=== PATIENT | female | born 1970 | race Caucasian/White ===

== ENCOUNTER 2018-11-14 11:40 | Emergency (ER) | payer MEDICARE ==
[2018-11-14] MEDS ORDERED: Lidocaine 1% PF 5 ML VIAL ONE (11:58)
== END 2018-11-14 12:25 | disposition home or self-care (01) ==
LOC: BURERS 11:40
DX: L02.213 Cutaneous abscess of chest wall (principal); E78.00 Pure hypercholesterolemia, unspecified; F32.9 Major depressive disorder, single episode, unspecified; Z87.891 Personal history of nicotine dependence; Z79.899 Other long term (current) drug therapy
CPT/HCPCS: 10061; J2001

== ENCOUNTER 2019-05-31 14:33 | Emergency (ER) | payer MEDICARE ==
[2019-05-31] MEDS ORDERED: Albuterol Sulfate 2.5 mg/3 ml Neb ONE (15:02)
[2019-05-31] MEDS ORDERED: cefTRIAXone\\ROCEPHIN 2 GM VIAL ONE (15:09)
[2019-05-31] MEDS ORDERED: Ondansetron PF 4 MG/2 ML Vial ONE (15:09)
[2019-05-31 15:21] LABS: #Basophils 0.1 thou/uL (0.0-0.2); #Eosinphils 0.1 thou/uL (0.0-0.7); #Lymphocytes 1.2 thou/uL (1.20-3.40); #Monocytes 0.4 thou/uL (0.11-0.59); #Neutrophils 7.2 thou/uL (1.40-6.50); %Basophils 0.6 % (0.0-1.0); %Eosinophils 1.2 % (0.0-10.0); %Lymphocytes 13.4 % (21.0-51.0); %Monocytes 4.3 % (0.0-10.0); %Neutrophils 80.4 % (42.0-75.0); Hemoglobin 12.5 g/dL (12.0-16.0); Mean Corpuscular HGB CONC 31.9 g/dL (32.0-36.0); Mean Corpuscular Hemoglobin 28.7 pg (27.0-31.0); Mean Corpuscular Volume 89.9 fL (78.0-98.0); Mean Platelet Volume 7.3 fL (7.4-10.4); Platelet Count 219 thou/uL (130-400); RBC Distribution Width 12.8 % (11.5-14.5); Red Blood Cell (RBC) Count 4.38 mill/uL (4.20-5.40); White Blood Cell (WBC) Count 8.9 thou/uL (4.8-10.8)
[2019-05-31 15:33] LABS: Anion Gap 17 mmol/L (10-20); BUN (Urea Nitrogen) 6 mg/dL (7.0-18.7); Calc. Creatinine Clearance 0 mL/min (70-130); Calcium 9.9 mg/dL (7.8-10.44); Carbon Dioxide 24 mmol/L (22-29); Chloride 103 mmol/L (98-107); Estimated GFR-MDRD 72; Glucose 142 mg/dL (70-105); Potassium 3.5 mmol/L (3.5-5.1); Sodium 140 mmol/L (136-145)
--- NOTE | 2019-05-31 15:34 | RAD ---
RADIOGRAPH CHEST 1 VIEW: 05/31/19 HISTORY: 48-year-old female with cough. FINDINGS: There are no air space densities, pulmonary edema, pneumothorax, or cardiomegaly. The lateral costop hrenic angles are sharp. IMPRESSION: No acute cardiopulmonary findings. jn [] POS: C
== END 2019-05-31 16:27 | disposition home or self-care (01) ==
LOC: BURERS 14:33
DX: J20.9 Acute bronchitis, unspecified (principal); E78.00 Pure hypercholesterolemia, unspecified; G10 Huntington's disease; F17.210 Nicotine dependence, cigarettes, uncomplicated; Z79.899 Other long term (current) drug therapy; Z85.42 Personal history of malignant neoplasm of other parts of uterus
CPT/HCPCS: 36415; 71045; 80048; 85025; 87040; 94640; 96365; 96375; J0696; J2405; J7611

== ENCOUNTER 2025-03-30 14:26 | Emergency (ER) | payer OTHER | END 2025-03-30 15:49 | disposition home or self-care (01) | LOC: BURERS 14:26 | DX: M70.21 Olecranon bursitis, right elbow (principal); M70.22 Olecranon bursitis, left elbow; F17.210 Nicotine dependence, cigarettes, uncomplicated; Z79.899 Other long term (current) drug therapy | CPT/HCPCS: 99283 ==